=== PATIENT | female | born 1985 | race Caucasian/White ===

== ENCOUNTER → 2017-10-18 | Outpatient (CLI) | payer MEDICARE, MEDICAID ==
[~2017-10-18] MED LIST: ABILIFY PO; ABILIFY10 MG; ANAPROX DS550 MG PO; ASPIRIN325 PO; AUGMENTIN 875875 MG PO; BUDEPRION XL300 MG PO; BUPROPION; BUSPAR 5 MG TABL5 M1 PO; CARAFATE 1 GM TA1 G1 PO; CIPRO250 MG PO; CIPROFLOXACIN500 M1 PO; CLONAZEPAM; CLONAZEPAM 0.50.5 M1; CLONAZEPAM PO; ED-SPAZ0.125 MG PO; FLAGYL500 MG PO; HYDROCHLOROTH12.5 M1 PO; HYDROCODONE-AP1 EAC6 PO; HYDROXYZINE HCL25 M1 PO; HYOSCYAMINE PO; HYOSCYAMINE0.375 M2 PO; IBUPROFEN 200200 M1 PO; IBUPROFEN 800800 M1 PO; KEFLEX500 MG PO; LEVSIN; MEDROLDOSEPACK PO; MELOXICAM; MOBIC7.5 MG PO; NAPROSYN500 MG PO; NORCO 5-325 TA1 EACH PO; OMEPRAZOLE; OMEPRAZOLE20 M2 PO; PENICILLIN VK500 MG PO; PHENERGAN 25 MG25 M1 PO; PHENERGAN 25 MG25 MG PO; PHENTERMINE; PHENTERMINE H37.5 MG; PHENTERMINE PO; PRENATAL VITAM1 EAC6 PO; PRILOSEC; PRILOSEC 20 MG20 MG PO; PROMETHAZINE PO; RESTORIL30 MG PO; ROBAXIN 750 MG750 MG PO; SUPER B COMPLE1 EAC2 PO; THERA-M CAPLET1 EACH PO; TRAZODONE HCL50 MG PO; ULTRAM 50MG TAB50 MG PO; VYVANSE20 MG PO; WELLBUTRIN; WELLBUTRIN XL150 M1 PO; WELLBUTRIN XL300 M2; ZOLOFT 50 MG TA50 M1 PO; [UNRECOGNIZED DRUG - OTHER]
== END ==
LOC: M.MRI 14:30
DX: M48.02 Spinal stenosis, cervical region (principal)

== ENCOUNTER 2018-02-23 17:01 | Inpatient (IN) | payer MEDICARE, MEDICAID ==
[~2018-02-23] VITALS: Ht 167.6 cm; Wt 165.6 kg
--- NOTE | ~2018-02-23 | CON ---
[address] [address] CONSULTATION Name: UZAIR RODRIGUEZ Roxanne Room: [address] IN .R.#: [id number] Admission: 02/24/18 Attend Phys: Jerica Grey Discharge: Date of : 85 Report #: [id number] THIS REPORT FOR: //name// CC: Physician staff JEROME Montague HISTORY OF PRESENT ILLNESS: This is a 30-year-old female with a past medical history of major depression, bipolar disorder, PTSD, and borderline personality disorder, who presented to the hospital after calling the emergency service on herself following ingestion of bleach and multiple pills including Klonopin, fentanyl, and trazodone. The patient has a prior history of attempted suicide. The patient reports that she was feeling hopeless, helpless and depressed and resorted to this measure. The patient reports pain on swallowing and also reports pain with swallowing saliva and liquids. The patient has a history of gastroesophageal reflux disease and apparently had an EGD performed about 5 years back, which was unremarkable. The patient denies any fevers, chills, cough or abdominal pain. The patient has not had any hematemesis or hematochezia. PAST MEDICAL HISTORY: Gastroesophageal reflux disease, major depression, bipolar disorder. PAST SURGICAL HISTORY: The patient had had cholecystectomy, tonsillectomy, adenoidectomy and removal. SOCIAL HISTORY: The patient reports smoking every day and reports a past history of methamphetamine and heroin use. She denies any alcohol use. FAMILY HISTORY: There is no family history of esophageal or gastric cancer. REVIEW OF SYSTEMS: Comprehensive 10-point review of systems is negative except for what is mentioned in HPI. PHYSICAL EXAMINATION: VITAL SIGNS: Temperature 36.5, pulse rate 78, respiratory rate 26, blood pressure 130/70, pulse ox 93% on room air. GENERAL: The patient is alert, awake, oriented times 3. HEENT: Pupils are equal, round, reactive to light and accommodation. Mucous membranes are moist. There is no congestion. There is mild erythema of the posterior oropharynx noted. CARDIOVASCULAR: Rate and rhythm regular. S1, S2 present. LUNGS: Clear to auscultation bilaterally. ABDOMEN: Soft. There is no distention, guarding or rigidity. EXTREMITIES: Warm, well perfused. There is no edema. SKIN: [place] [address] CONSULTATION Name: UZAIR RODRIGUEZ Room: [address]#: [id number] Admission: 02/24/18 Attend Phys: Jerica Grey Discharge: Date of : 85 Report #: [id number] LABORATORY DATA: Hemoglobin 13.9, hematocrit 43.5, WBC count 6.0, and platelet count 151. Sodium 137, potassium 3.6, chloride 105, bicarbonate , BUN 17, creatinine 0.1, AST 20, ALT 18, alkaline phosphatase 72, total bilirubin 0.2. IMAGING: Chest CT: Normal heart and vessels. No evidence of aneurysmal dissection. Esophagus mildly prominent, early esophagitis cannot be excluded. No evidence of mediastinal air. pneumonia of the right lower lobe present with aspiration pneumonitis. ASSESSMENT AND PLAN: A 32-year-old female with history of major depression, bipolar disorder, and prior suicidal attempt presents with ingestion of several medications, as well as caustic ingestion. Continue to keep the patient n.p.o. An esophagogastroduodenoscopy is recommended to evaluate the extent of caustic damage to the esophagus. Continue proton pump inhibitor drip for now. Further recommendations will be based on results of esophagogastroduodenoscopy. TIME SPENT: 35 minutes were spent with the patient obtaining history, reviewing the chart, performing physical examination, and formulating a plan of care. By: [id number] Puentes MD /nt
[~2018-02-23 17:01] MED LIST changes: -BUDEPRION XL300 MG PO; +BUPROPION XL300 MG PO; -BUSPAR 5 MG TABL5 M1 PO; +BUSPIRONE HCL10 MG PO; +CLONAZEPAM 1 MG1 M1 PO; -HYOSCYAMINE PO; +HYOSCYAMINE0.375 M1 PO; -PROMETHAZINE PO
[2018-02-23 17:05] VITALS: BP 137/77
--- NOTE | 2018-02-23 17:39 | NUR ---
SPOKE TO NARCISO AT [facility]. STATES THAT TRAZODONE HAS PEAK TIME OF 1-2 HOURS, KLONAPIN HAS PEAK OF 1-4 HOURS, PHENTRAMINE PEAK IS 3-4.5. STATES SHE WILL FAX OVER MORE INFORMATION
[2018-02-23 17:58] LABS: ABSOLUTE LYMPHOCYTES 0.9 thou/uL (0.8-5.3); ABSOLUTE MONOCYTES 0.2 thou/uL (0.0-1.2); ABSOLUTE NEUTROPHILS 4.8 thou/uL (1.6-8.1); BASOPHILS 0.2 %; EOSINOPHILS 0.3 %; HEMATOCRIT 43.5 % (37.0-47.0); HEMOGLOBIN 13.9 gm/dL (12.0-15.0); LYMPHOCYTES 14.6 %; MCH 28.4 pg (26.0-34.0); MCV 88.7 fL (80.0-100.0); MONOCYTES 4.2 %; NUCLEATED RBCS 0 /100WBC; PLATELET COUNT* 151 thou/uL (150-400); POLYS 80.7 %; RBC 4.91 mil/uL (4.20-5.00); RDW-CV 15.3 % (10.5-14.5)
[2018-02-23 18:01] LABS: URINE BILIRUBIN NEGATIVE (Negative); URINE BLOOD NEGATIVE (Negative); URINE COLOR YELLOW; URINE GLUCOSE-RANDOM TRACE (Negative); URINE KETONES NEGATIVE (Negative); URINE LEUKOCYTES-REFLEX NEGATIVE (Negative); URINE NITRITE-REFLEX NEGATIVE (Negative); URINE PROTEIN TRACE (Negative); URINE SPECIFIC GRAVITY >= 1.030 (1.005-1.030); URINE UROBILINOGEN 0.2 E.U./dl (0.2-1.0)
[2018-02-23 18:03] LABS: URINE CLARITY CLEAR
--- NOTE | 2018-02-23 18:05 | NUR ---
PT MOTHER AT BEDSIDE STATING SHE IS TAKING ALL PTS PERSONAL BELONGINGS.
[2018-02-23 18:08] LABS: AMP/METHAMP POSITIVE (Negative); BARBITURATES Negative (Negative); BENZODIAZEPINES Negative (Negative); COCAINE Negative (Negative); METHADONE Negative (Negative); OPIATES Negative (Negative); PCP Negative (Negative); THC Negative (Negative)
[2018-02-23 18:10] LABS: SALICYLATE 3.1 mg/dL (2.8-20.0)
[2018-02-23 18:11] LABS: ACETAMINOPHEN < 2 ug/mL (10-30); ALCOHOL < 10 mg/dL (<10)
[2018-02-23 18:17] LABS: ALBUMIN 2.8 g/dL (3.4-5.0); ALKALINE PHOSPHATASE 72 U/L (46-116); ANION GAP 10 mmol/L (7-16); CALCIUM 8.2 mg/dL (8.5-10.1); CHLORIDE 105 mmol/L (98-107); CO2 22 mmol/L (21-32); CREATININE < 0.1 mg/dL (0.6-1.3); GLUCOSE 117 mg/dL (70-99); POTASSIUM 3.6 mmol/L (3.5-5.1); SGOT 20 U/L (15-37); SGPT 18 U/L (30-65); SODIUM 137 mmol/L (136-145); TOTAL BILIRUBIN 0.2 mg/dL (<0.1-1.0); TOTAL PROTEIN 6.7 g/dL (6.4-8.2)
[2018-02-23 18:35] LABS: BUN 17 mg/dL (7-18)
--- NOTE | 2018-02-23 18:51 | NUR ---
RP CALLED IN ROUTE
[2018-02-24] VITALS (18 sets, daily range): BP systolic 84–155; BP diastolic 39–80
[2018-02-24 02:07] LABS: TROPONIN-I LEVEL <0.06 ng/mL (<0.06)
--- NOTE | 2018-02-24 06:09 | NUR ---
Pt arrived to ICU from ED at 0245. 1:1 sitter for suicidal ideation, admitted for bleach ingestion along with some pills. Reports that "it feels like my throat is closing up." Appears to be in no distress, alert and oriented. VSS. On 2L O2 per NC, SaO2 in mid to upper 90s. NPO. Pt asleep and snoring by 0330 and remains asleep. Pt has changed positions on her own and appears to go right back to sleep after changing position. IVF and Protonix gtt infusing. Will continue to monitor.
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
--- NOTE | 2018-02-24 10:20 | NUR ---
Nutrition: Consult received for "NPO." Pt is now clear liquids. Patients history and story reviewed in ICU rounds with Arjun JOSUE. No need for nutrition consult. Pt will go to psych.
--- NOTE | 2018-02-24 11:09 | EKG ---
[place] [address] ELECTROCARDIOGRAM REPORT Name: RODRIGUEZUZAIR Roxanne Room: [address] ADM IN M.R.#: [id number] Admission: 02/24/18 Attend Phys: Jerica Grey Discharge: Date of : 85 Report #: [id number] THIS REPORT FOR: //name// [facility] ED Test Date: 2018-02-23 Test Time: 17:08:58 Pat Name: UZAIR RODRIGUEZ Department: Room: [facility] Gender: F Body Artist: : 1985 Requested By: Ruddy Sofia Order Number: [id number] MD: Nabor Ford Measurements Intervals [place] Rate: 103 P: 54 MT: 156 QRS: 70 QRSD: 93 T: -34 QT: 356 QTc: 466 Interpretive Statements Sinus tachycardia Probable left atrial enlargement Borderline repolarization abnormality Compared to ECG 02/20/2016 15:55:20 No significant changes Electronically Signed On 02-24-2018 11:09:37 [employer]OV[employer] SPECIALIST by Nabor Ford [email or web address] <ELECTRONICALLY SIGNED> By: Nabor Ford MD, FAC 02/24/18 1109 1708 1708 Nabor Ford MD, [facility] /EPI
--- NOTE | 2018-02-25 05:25 | NUR ---
PT SLEPT WELL OVERNIGHT. HAS BEEN CALM AND APPROPRIATE WHILE AWAKE. SITTER AT BEDSIDE OVERNIGHT, SUICIDE PRECAUTIONS IN PLACE. LFA SL. RWRIST SL. NO LABS THIS MORNING. VSS. TOLERATING CLEAR LIQUIDS WITHOUT N/V.
[2018-02-25 05:31] VITALS: BP 128/68
[2018-02-25 07:45] VITALS: BP 132/69
[2018-02-25 15:13] VITALS: BP 132/69
[2018-02-25 15:34] VITALS: BP 125/57
--- NOTE | 2018-02-25 16:08 | NUR ---
SW was informed of need for inpt psych placement for pt. SW met with pt and completed initial assessment, introduced self, and SW role. Pt alert, oriented, pleasant. Pt agreeable to safe dc plan of inpt psych and requested [facility] initially because she thought her psychiatrist Dr Bolton would be able to follow her there. SW spoke with intake at [facility] who said that they do not have any beds available. SW called [facility] and provided referral and they would be able to accept pt. SW discussed with pt who wanted SW to speak with pt psychiatrist, SW spoke with Dr Bolton and he informed that he actually follows at [facility], SW informed pt and SW called [facility] and faxed referral info to [facility]. SW called and spoke with intake at [facility] and let them know the bed was no longer needed there since [facility] indicated that they would be able to accept pt. [facility] still reviewing referral and speaking with but anticipate being able to accept pt today. Pt lives at home with her mother but says that she would like to find a different living situation after inpt hospital stay. BISHNU discussed situation with pt nurse. [facility] ph [phone] fax [phone]
[2018-02-25 20:21] VITALS: BP 132/69
--- NOTE | 2018-02-25 20:22 | NUR ---
ASSESSMENT COMPLETE. PT ALERT AND ORIENTED X4. PT DENIES PAIN AND N/V THROUGHOUT THE DAY. PT ON ROOM AIR WITH ADEQUATE SATS. VITALS STABLE. PT TOLERATING DIET AND TAKES MEDS WITHOUT DIFFICULTY. PT HAS 1:1 SITTER. PT IS UP STANDBY. VOIDING WITHOUT DIFFICULTY. PT DISCHARGED TO [facility] AT 1818. IV DISCONTINUED WITHOUT PROBLEMS. SEE ASSESSMENT AND VITALS FOR OTHER DETAILS. CALL LIGHT WITHIN REACH, WILL CONTINUE PLAN OF CARE
== END 2018-02-25 18:18 | DRG 918 ==
LOC: M.ERS 17:01 → M.TBA-ER 02-24 02:05 → M.ICU 02-24 02:05 → M.3W 02-24 02:05 → M.ICU 02-24 02:40 → M.3W 02-24 18:54
PROVIDERS: Family Medicine; Personal Emergency Response Attendant; ADMIT Internal Medicine
PROC: 0DJ08ZZ Inspection of Upper Intestinal Tract, Via Natural or Artificial Opening Endoscopic (ICD-10-PCS; principal; 2018-02-24)
DX: T54.92XA Toxic effect of unspecified corrosive substance, intentional self-harm, initial encounter (principal); E44.1 Mild protein-calorie malnutrition; R45.851 Suicidal ideations; Z68.43 Body mass index [BMI] 50.0-59.9, adult; T42.4X2A Poisoning by benzodiazepines, intentional self-harm, initial encounter; T50.5X2A Poisoning by appetite depressants, intentional self-harm, initial encounter; K21.0 Gastro-esophageal reflux disease with esophagitis; F43.10 Post-traumatic stress disorder, unspecified; F90.9 Attention-deficit hyperactivity disorder, unspecified type; K29.00 Acute gastritis without bleeding; K58.9 Irritable bowel syndrome, unspecified; F60.3 Borderline personality disorder; F31.9 Bipolar disorder, unspecified; E66.01 Morbid (severe) obesity due to excess calories; Z88.6 Allergy status to analgesic agent; Z88.8 Allergy status to other drugs, medicaments and biological substances; Z79.82 Long term (current) use of aspirin; Z79.899 Other long term (current) drug therapy; Y92.89 Other specified places as the place of occurrence of the external cause; Z90.49 Acquired absence of other specified parts of digestive tract; Z28.21 Immunization not carried out because of patient refusal